=== PATIENT | female | born 1955 | race Caucasian/White ===

== ENCOUNTER → 2016-05-23 | Outpatient (CLI) | payer MEDICARE, OTHER ==
[~2016-05-23] MED LIST: /DULO30CA OR; B COTAB6 PO; COLA100C2 PO; CYMB1CAP5 PO; HYDR25TA6 OR; HYDR25TAB PO; LYRI75CA OR; LYRI75CA PO; MULTIVIT PO; TUMS500C OR; lis; lisinopril/hctz PO; savella PO
[2016-05-23 13:48] LABS: INR 1.04
[2016-05-27 00:06] LABS: BLASTOMYCES ANTIBODY LEVEL Negative (Neg:<1:1); COCCIDIOMYCOSIS ANTIBODY Negative (Neg:<1:1); CRYPTOCOCCUS ANTIGEN SER Negative (Negative); HISTOPLASMOSIS ANTIBODY Negative (Neg:<1:1); SJOGREN'S ANTI SS-A <0.2 AI (0.0-0.9); SJOGREN'S ANTI SS-B <0.2 AI (0.0-0.9)
== END ==
LOC: M SMT 10:46
PROVIDERS: ATTEND Internal Medicine Pulmonary Disease
DX: R91.8 Other nonspecific abnormal finding of lung field (principal)

== ENCOUNTER → 2016-05-27 | Day surgery (SDC) | payer MEDICARE ==
[~2016-05-27] VITALS: Ht 149.9 cm; Wt 72.6 kg
[~2016-05-27] MED LIST changes: +BUPIVACAINE LIPOSOME/PF 1.3% 20ML (266MG/20ML) VIAL (EXPAREL) As Ordered ONE; +CETACAINE SPRAY 20GM (FLOOR STOCK) XX ONE; +EPINEPHrine 1MG/10ML SYRINGE 1.5IN As Ordered ONE; +EXCEDRIN MIGRAINE TABLET PO ONE; +GLYCOPYRROLATE INJ 0.2 MG/ML 2 ML VIAL As Ordered ONE; +LABETALOL HCL 100 MG/20 ML VIAL As Ordered ONE; +LIDOCAINE 2% INJ 100 MG/5 ML SDV (FOR ANES.) As Ordered ONE; +LR 1,000 ML IV SCH; +METOCLOPRAMIDE INJ 10MG/2ML VIAL (J2765) As Ordered ONE; +METOCLOPRAMIDE INJ 10MG/2ML VIAL (J2765) IV PRN; +MIDAZOLAM INJ 2 MG/2 ML VIAL (J2250) As Ordered ONE; +MORPHINE 2 MG/ML 1ML SYRINGE IV PRN; +MUPIROCIN 2% OINT 22 GM TUBE As Ordered ONE; +MUPIROCIN 2% OINT 22 GM TUBE TOP ONE; +NEOSTIGMINE 1MG/ML 5 ML SYRINGE (J2710) As Ordered ONE; +ONDANSETRON 4MG/2ML VIAL (J2405) As Ordered ONE; +ONDANSETRON 4MG/2ML VIAL (J2405) IV PRN; +PERCOCET 5MG/325MG TAB PO PRN; +PHENYLephrine HCL 500 MCG/5 ML (100MCG/ML) SYRINGE (J2370) As Ordered ONE; +PROPOFOL 200 MG/20 ML VIAL As Ordered ONE; +ROCURONIUM BROMIDE 50 MG/5 ML VIAL As Ordered ONE; +THROMBIN SOLN 20,000 UNITS KIT As Ordered ONE; +THROMBIN SOLN 20,000 UNITS KIT TOP ONE; +ceFAZolin 1GM INJ (J0690) As Ordered ONE; +ceFAZolin SOD 1 GM in D5W MINI-BAG PLUS 50 ML IV ONE; +fentaNYL 100 MCG/2 ML INJECTION (J3010) IV PRN; +fentaNYL 250 MCG/5 ML INJECTION (J3010) As Ordered ONE
[2016-05-27 08:39] LABS: MEAN CORPUSCULAR HEMOGLOBIN 29.6 pg (27.0-33.0); MEAN CORPUSCULAR HGB CONC 33.6 g/dl (32.0-36.5); MEAN CORPUSCULAR VOLUME 88.1 fl (80.0-96.0); RED CELL DISTRIBUTION WIDTH 13.2 % (11.5-14.5); WHITE BLOOD COUNT 5.5 K/mm3 (4.0-10.0)
[2016-05-27 08:45] LABS: INR 0.93
[2016-05-27 09:05] LABS: CALCIUM LEVEL 9.2 MG/DL (8.8-10.2); CREATININE FOR GFR 1.23 MG/DL (0.55-1.02); GLOMERULAR FILTRATION RATE 47.1 (>45); POTASSIUM SERUM 3.8 MEQ/L (3.5-5.1)
--- NOTE | 2016-05-27 09:18 | REP ---
Chest x-ray: Two views. History: Abnormal chest x-ray. No comparison views available. Findings: There are innumerable small subcentimeter noncalcified pulmonary nodules throughout the upper lobes. Pleural angles are sharp. No infiltrate is seen. Heart is not enlarged. The aorta is somewhat tortuous. Pleural angles are sharp. There are mild degenerative changes in the thoracic spine. Impression: Numerous bilateral upper lobe noncalcified pulmonary nodules. Otherwise no acute disease. No comparison views available. Signed by All Pompa MD 05/27/2016 01:41 P
--- NOTE | 2016-05-27 13:43 | REP ---
Portable chest x-ray: Sitting AP view. History: Postoperative at recovery room. Comparison chest x-ray May 27, 2016. Findings: There is bilateral lower lung zone plate-like atelectasis which is a new finding. There is no evidence of pneumothorax or hydrothorax. There are surgical sutures in the in the right mid lung zone. Impression: No pneumothorax or hydrothorax seen. Surgical suture line in the right mid lung zone. Bilateral lower lung zone plate-like atelectasis. Signed by All Pompa MD 05/27/2016 01:44 P
[2016-05-27 15:10] VITALS: BP 174/80
--- NOTE | 2016-05-27 16:06 | RO ---
DATE OF PROCEDURE: 05/27/2016 PREPROCEDURE DIAGNOSES: Mediastinal lymphadenopathy, multiple lung nodules. POSTPROCEDURE DIAGNOSES: Mediastinal lymphadenopathy, multiple lung nodules with pathology reporting necrotizing granulomas. Final pathology pending. OPERATIVE PROCEDURE: Mediastinoscopy and bronchoscopy. SURGEON: Guanaco Agustin MD COMPLIANCE AIDE: ANESTHESIA: FINDINGS: The bronchoscopy revealed and normal branching tracheobronchial tree with a moderate amount of secretions. There were no endobronchial lesions seen. Mediastinoscopy revealed a very hard large paratracheal mediastinal node just below the innominate artery which was copiously biopsied with the above results returned as necrotizing granulomas. Permanent section and special stages still pending. Specimens were also sent in separate cultures to include anaerobic, fungal and tape. DESCRIPTION OF PROCEDURE: Under satisfactory general anesthesia and single lumen tube endotracheal intubation, the bronchoscope was placed into the tracheobronchial tree. Each tracheobronchial segment and subsegment was thoroughly inspected and there were no endobronchial lesions. There was a moderate amount of secretions which were suction/aspirated. The patient was then prepped and draped in the usual sterile fashion and a standard mediastinoscopy incision was made just above sternal notch. Care was taken in minimally extending her neck because of her underlying cervical spine disease. Incision was carried down to the subcutaneous tissue. Strap muscles were divided and the pretracheal plane was entered. Tissue was swept away. The innominate artery could be clearly felt and just below that a very hard piece of tissue which turned out to be the lymph node. Mediastinoscope was placed and after dissecting bluntly with dissection dissector, the lymph node could be isolated. This was then aspirated to ascertain that it indeed was a nonvascular structure and then copiously biopsied. Frozen section results were reported back. After achieving adequate hemostasis with the electrocautery, thrombin and Gelfoam, the strap muscles were reapproximated with the use of running #3-0 Vicryl suture, the subcutaneous tissue by use of the same, and the skin by use of #4-0 Monocryl subcuticular suture. The patient tolerated the procedure well and left the operating room in satisfactory condition for the recovery room.
== END | disposition home or self-care (01) ==
LOC: M SDC 07:58
PROVIDERS: ATTEND Thoracic Surgery (Cardiothoracic Vascular Surgery)
DX: I88.8 Other nonspecific lymphadenitis (principal); R59.0 Localized enlarged lymph nodes; R91.8 Other nonspecific abnormal finding of lung field; J84.89 Other specified interstitial pulmonary diseases; I10 Essential (primary) hypertension; G47.30 Sleep apnea, unspecified; F32.9 Major depressive disorder, single episode, unspecified; Z79.899 Other long term (current) drug therapy
CPT/HCPCS: 31622; 36415; 39402; 71010; 71020; 80048; 85027; 85610; 86850; 86900; 86901; 87070; 87102; 87116; 87205; 87206; 88305; 88312; 88331; J0690; J2250; J2370; J2405; J2710; J2765; J3010

== ENCOUNTER → 2016-06-02 | Outpatient (CLI) | payer MEDICARE ==
[~2016-06-02] MED LIST changes: -BUPIVACAINE LIPOSOME/PF 1.3% 20ML (266MG/20ML) VIAL (EXPAREL) As Ordered ONE; -CETACAINE SPRAY 20GM (FLOOR STOCK) XX ONE; -EPINEPHrine 1MG/10ML SYRINGE 1.5IN As Ordered ONE; -EXCEDRIN MIGRAINE TABLET PO ONE; -GLYCOPYRROLATE INJ 0.2 MG/ML 2 ML VIAL As Ordered ONE; -LABETALOL HCL 100 MG/20 ML VIAL As Ordered ONE; -LIDOCAINE 2% INJ 100 MG/5 ML SDV (FOR ANES.) As Ordered ONE; -LR 1,000 ML IV SCH; -METOCLOPRAMIDE INJ 10MG/2ML VIAL (J2765) As Ordered ONE; -METOCLOPRAMIDE INJ 10MG/2ML VIAL (J2765) IV PRN; -MIDAZOLAM INJ 2 MG/2 ML VIAL (J2250) As Ordered ONE; -MORPHINE 2 MG/ML 1ML SYRINGE IV PRN; -MUPIROCIN 2% OINT 22 GM TUBE As Ordered ONE; -MUPIROCIN 2% OINT 22 GM TUBE TOP ONE; -NEOSTIGMINE 1MG/ML 5 ML SYRINGE (J2710) As Ordered ONE; -ONDANSETRON 4MG/2ML VIAL (J2405) As Ordered ONE; -ONDANSETRON 4MG/2ML VIAL (J2405) IV PRN; -PERCOCET 5MG/325MG TAB PO PRN; -PHENYLephrine HCL 500 MCG/5 ML (100MCG/ML) SYRINGE (J2370) As Ordered ONE; -PROPOFOL 200 MG/20 ML VIAL As Ordered ONE; -ROCURONIUM BROMIDE 50 MG/5 ML VIAL As Ordered ONE; -THROMBIN SOLN 20,000 UNITS KIT As Ordered ONE; -THROMBIN SOLN 20,000 UNITS KIT TOP ONE; -ceFAZolin 1GM INJ (J0690) As Ordered ONE; -ceFAZolin SOD 1 GM in D5W MINI-BAG PLUS 50 ML IV ONE; -fentaNYL 100 MCG/2 ML INJECTION (J3010) IV PRN; -fentaNYL 250 MCG/5 ML INJECTION (J3010) As Ordered ONE
[2016-06-07 00:06] LABS: HISTOPLASMOSIS ANTIBODY Negative (Neg:<1:1)
== END ==
LOC: M SMT 11:17
PROVIDERS: ATTEND Thoracic Surgery (Cardiothoracic Vascular Surgery)
DX: R91.8 Other nonspecific abnormal finding of lung field (principal)

== ENCOUNTER → 2018-04-12 | Outpatient (CLI) | payer MEDICARE ==
[~2018-04-12] MED LIST changes: -/DULO30CA OR; -B COTAB6 PO; -COLA100C2 PO; -CYMB1CAP5 PO; -HYDR25TA6 OR; -HYDR25TAB PO; -LYRI75CA OR; -LYRI75CA PO; +METHACHOLINE KIT (J7674) INH; -MULTIVIT PO; -TUMS500C OR; -lis; -lisinopril/hctz PO; -savella PO
== END ==
LOC: M CARPUL 12:38
DX: R05 Cough (principal)
CPT/HCPCS: J7674

== ENCOUNTER → 2018-10-31 | Outpatient (CLI) | payer MEDICARE ==
[~2018-10-31] MED LIST changes: +B COTAB6 PO; +COLA100C2 PO; +CYMB1CAP5 OR; +CYMB1CAP5 PO; +HYDR25TA6 OR; +HYDR25TAB PO; +LYRI75CA OR; +LYRI75CA PO; -METHACHOLINE KIT (J7674) INH; +MULTIVIT PO; +TUMS500C OR; +lis; +lisinopril/hctz PO; +savella PO
--- NOTE | 2018-11-04 14:32 | SLEEPHOME ---
DATE OF STUDY: 10/31/2018 ORDERED BY: Luis Morgan MD Diagnostic home sleep testing was performed due to concern for the obstructive sleep apnea syndrome. For testing a NOX-T3 respiratory monitoring device was used. Continuous record was made of pulse, oxygen saturation, airflow, chest and abdominal strain and body position. 9 hours and 59 minutes of data were reviewed. There were 8 hours marked as time in bed. During the interval marked time in bed there were 82 respiratory events identified of 10 seconds in duration or greater for a respiratory event index of 10.2. The events were primarily obstructive. Baseline pulse rate 63 beats per minute, pulse rate ranged 55-85. Baseline saturation was to 89.7% and saturations fell as low as 82%. Testing was performed in both the supine and nonsupine positions. IMPRESSION: Abnormal home sleep testing with repetitive respiratory events and oxygen desaturations to 82% with a respiratory event index of 10.2 is consistent with the obstructive sleep apnea syndrome. RECOMMENDATIONS: The patient should be encouraged to undergo formal sleep evaluation.
== END ==
LOC: M SLEEP HO 12:31
PROVIDERS: ATTEND Internal Medicine Pulmonary Disease
DX: G47.30 Sleep apnea, unspecified (principal)